=== PATIENT | male | born 1955 | race Caucasian/White ===

== ENCOUNTER 2017-04-09 12:34 | Outpatient (CLI) | payer MEDICARE, OTHER | END 2017-04-09 12:35 | LOC: POD 12:34 | PROVIDERS: ATTEND Podiatrist | DX: E11.42 Type 2 diabetes mellitus with diabetic polyneuropathy (principal); B35.1 Tinea unguium; L84 Corns and callosities | CPT/HCPCS: G0463 ==

== ENCOUNTER 2018-03-01 14:26 | Outpatient (CLI) | payer MEDICARE, OTHER | END 2018-03-01 14:28 | LOC: POD 14:26 | PROVIDERS: ATTEND Podiatrist | DX: B35.1 Tinea unguium (principal); M79.674 Pain in right toe(s); M79.675 Pain in left toe(s); E11.42 Type 2 diabetes mellitus with diabetic polyneuropathy | CPT/HCPCS: G0463 ==

== ENCOUNTER 2018-06-10 12:54 | Outpatient (CLI) | payer MEDICARE, OTHER | END 2018-06-10 12:55 | LOC: POD 12:54 | PROVIDERS: ATTEND Podiatrist | DX: B35.1 Tinea unguium (principal); M79.674 Pain in right toe(s); M79.675 Pain in left toe(s); E11.42 Type 2 diabetes mellitus with diabetic polyneuropathy; L89.892 Pressure ulcer of other site, stage 2 | CPT/HCPCS: G0463 ==